=== PATIENT | female | born 1955 | race American Indian/Alaskan Native ===

== ENCOUNTER 2016-11-15 07:52 | Day surgery (SDC) | payer MEDICARE ==
--- NOTE | 2016-11-11 07:58 | Admit Criteria Form ---
Admission Criteria Documentation: AMBULATORY SURGERY EXCEPTION CRITERIA Ambulatory Surgery Exception Criteria ( Place 'X' for any and all applicable criteria): Surgery or procedure performed on ambulatory basis may require inpatient stay for[A] ANY ONE of the following(1)(2)(3)(4)(5)(6)(7)(8)(9): [X] I. A preoperative situation, condition, or finding that warrants inpatient stay as indicated by ANY ONE of the following: [] a) Inpatient care needed because of severity of a disease or condition rather than the surgery (eg, severe cardiac or respiratory disease, severe infection) (15) (16 ) (17) (18) [] b) Emergent procedure (eg, angioplasty for acute ischemia)(19) [] c) Complex surgical approach or situation as indicated by ANY ONE of the following(3): [] i) Open approach needed instead of usual endoscopic, transcatheter, or other less invasive procedure [] ii) Difficult approach because of previous operation [] iii) Airway monitoring required after open neck procedures(20)(21) [] iv) Large mass requiring unusually extensive dissection [] v) Additional complicating feature requiring inpatient care (eg, drain management)(22(23): [X] d) Major surgery in a pt with high anesthetic risk as indicated by ANY ONE of the following (2)(3)(5)(7)(8): [X] i) ASA risk class III or higher (severe systemic disease impairing function) [D] [] ii) Advanced age (eg, older than 85 years)(14)(24) [] iii) Symptomatic heart failure(25) [] iv) Symptomatic asthma or COPD(8)(21) [] v) Morbid obesity with hemodynamic or respiratory problems(20)( 21)(26)(27) [] vi) Obstructive sleep apnea(20)(21) [] vii) Former premature infants who are younger than 60 weeks [] viii) High risk for severe postoperative abnormalities (eg, severe postoperative hypocalcemia after parathyroidectomy for severe hyperparathyroidism)(27)( 28) [] ix) Unstable angina(25) [] e) Drug-related risk requiring inpatient stay as indicated by ANY ONE of the following(5)(10)(14)(32)(33) [] i) Procedure requires discontinuing drugs or other therapy (eg , antiarrhythmic medication, antiseizure medication), which necessitates inpatient observation or treatment.(18)(31) [] ii) Major surgery and high risk drug use as indicated by ANY ONE of the following: [] 1) Active abuse of cocaine or similar drug [] 2) Monoamine oxidase inhibitor use [] 3) Other drug identified as posing risk [] f) Inadequate outpatient care situation as indicated by ANY ONE of the following(5)(10)(14)(32)(33) [] i) Patient lives remote from medical facility and procedure has urgent complication potential, and temporary nearby residence cannot be arranged [] ii) Patient will have postprocedure incapacitation and inadequate assistance at home, or alternative level of care cannot be arranged. [] iii) Patient will have long general anesthesia or procedure side effect resolution time, and competent person to stay with patient on first postoperative night at home or alternative level of care cannot be arranged. []iv) Other inadequate outpatient situation that cannot be handled by other means [] II. A perioperative event, condition, or finding that warrants inpatient stay as indicated by ANY ONE of the following (1)(2)(3): [] a) Inadequate physiologic recovery: cardiovascular, respiratory, or hemodynamic status not normal or near preoperative baseline(18) [] b) Hemodynamic instability [] c) Patient not alert with near normal or baseline mental status [] d) Temperature not normal or as expected and not appropriate for outpatient treatment of condition [] e) Ambulatory or appropriate activity level status not yet achieved post procedure [E](34)(35)(36) [] f) Operative site not appropriate (eg, unexpected or excessive drainage or bleeding) [] g) Postoperative effects not resolved or adequately managed (eg, significant pain or vomiting not appropriate for outpatient or next level of care)(10)(12) [] h) Complicating features requiring inpatient care as indicated by ANY ONE of the following(37): [] i) Severe complications of procedure (eg, bowel injury, airway compromise, vascular injury,severe hemorrhage) [] ii) Extensive (eg, dissection far beyond usual scope of procedure ) or prolonged (eg, 120 minutes beyond usual) surgery needed requiring inpatient postoperative care [] iii) Conversion to an open or complex procedure that requires inpatient care (eg, open vs laparoscopic cholecystectomy, abdominal vs vaginal hysterectomy)(38) [] iv) Comorbid condition or test result identified during or post procedure that requires inpatient care (7) [] v) Malignant hyperthermia(30) [] vi) Other complicating feature requiring inpatient care(22)(23) Inpatient stay may be needed until ALL of the following are present (1)(2)(3)(4) (5)(6)(10)(14)(33)(40): []a) Physiologic recovery: cardiovascular, respiratory, and hemodynamic status normal or near preoperative baseline []b) Hemodynamic stability []c) Patient alert, with near normal or baseline mental status []d) Temperature appropriate: patient afebrile or temperature appropriate for outpt treatment of condition []e) Activity level appropriate: ambulatory or appropriate activity level post procedure []f) Operative site appropriate as indicated by ALL of the following: []i) Site dry or with expected drainage []ii) Any blood noted is as expected for procedure. []g) Postoperative effects resolved or managed as indicated by ALL of the following: []i) Pain management appropriate for outpatient (or next level of) care(10) []ii) Minimal nausea and vomiting: if present, successfully treated with oral medication(12) []iii) Headache, dizziness, or drowsiness (if present) are mild. []h) Voiding status acceptable as indicated by ANY ONE of the following: []i) Voiding spontaneously []ii) No voiding but instructions given for follow-up in 6 to 8 hours []iii) Urinary catheter in place, and instructions given for follow-up []i) Complicating features requiring inpatient care manageable at a lower level of care(37) []j) Comorbid conditions manageable at a lower level of care(37) The original [employer] content created by [employer] has been revised. The portions of the content which have been revised are identified through the use of italic text or in bold, and [employer] has neither reviewed nor approved the modified material. All other unmodified content is copyright [employer]. Please see references footnoted in the original [employer] edition 2016
[~2016-11-15 07:52] MED LIST: ANCEF/STERILE WATER 2 GM/20 ML 2 GM/20 ML SYRINGE IV NR; NACL 0.9% 1000 ML 1,000 ML IV SCH
[2016-11-15] MEDS ORDERED: NACL BACTERIOSTATIC INFILTRATI ONE (08:25)
[2016-11-15] MEDS ORDERED: DIPRIVAN 10 MG/ML IV ONE (08:30)
[2016-11-15] MEDS ORDERED: SUBLIMAZE ONE (08:30)
[2016-11-15] MEDS ORDERED: ZOFRAN ONE (08:30)
[2016-11-15] MEDS ORDERED: XYLOCAINE MPF 2% ONE (08:30)
--- NOTE | 2016-11-15 08:31 | Anesthesia Consultation ---
Anesthesia Consult and Med Hx Date of service: 11/15/16 - Airway Anesthetic Teeth Evaluation: Poor (multiple missing and chipped teeth) ROM Head & Neck: Adequate Mental/Hyoid Distance: Adequate Mallampati Class: Class II Intubation Access Assessment: Probably Good - Pre-Operative Health Status ASA Pre-Surgery Classification: ASA3 Proposed Anesthetic Plan: General - Pulmonary Hx Smoking: Yes (QUIT 30YRS AGO) Hx Asthma: Yes ( A CHILD) - Cardiovascular System Hx Hypertension: Yes (30YRS) Hx Peripheral Vascular Disease: Yes (vasculitis) - Central Nervous System Hx Psychiatric Problems: Yes (depression) - Endocrine Hx Renal Disease: Yes Hx End Stage Renal Disease: Yes (04/2016) - Hematic Hx Anemia: Yes ( IRON INFUSION) - Other Systems Hx Cancer: Yes (breast rt)
--- NOTE | 2016-11-15 08:32 | Anesthesia Day of Surgery ---
Anesthesia Day of Surgery - Day of Surgery Patient Examined: Yes Patient H&P Reviewed: Yes Patient is NPO: Yes Beta Blockers: Yes
[2016-11-15] MEDS ORDERED: BENADRYL IV NR (08:59)
[2016-11-15] MEDS ORDERED: PEPCID IV NR (09:00)
[2016-11-15] MEDS ORDERED: BENADRYL PO NR (09:00)
[2016-11-15] MEDS ORDERED: VERSED IV NR (09:00)
[2016-11-15] MEDS ORDERED: NACL ONE (09:50)
[2016-11-15] MEDS ORDERED: RIFADIN ONE (09:50)
[2016-11-15] MEDS ORDERED: MARCAINE 0.5% INFILTRATI ONE ×2 (09:50→11:07)
[2016-11-15] MEDS ORDERED: HEPARIN 10,000 UNITS/10 ML ONE (09:50)
[2016-11-15] MEDS ORDERED: PAPAVERINE ONE (09:50)
[2016-11-15] MEDS ORDERED: XYLOCAINE 1%/ EPI 1:100,000 INFILTRATI ONE (09:50)
[2016-11-15] MEDS ORDERED: PROTAMINE SULFATE ONE (09:50)
[2016-11-15] MEDS ORDERED: NACL 0.9% 500 ML 0 ML ONE (09:51)
[2016-11-15 10:08] LABS: INR 1.74 (0.87-1.13)
[2016-11-15 10:09] LABS: Partial Thromboplastin Time 42.2 Sec. (24.2-36.6)
[2016-11-15] MEDS ORDERED: NACL 0.9% 500 ML 500 ML ONE (10:33)
[2016-11-15] MEDS ORDERED: NEO SYNEPHRINE ONE (10:40)
[2016-11-15] MEDS ORDERED: NACL 0.9% 100 ML ONE (10:40)
[2016-11-15] MEDS ORDERED: ePHEDrine SULFATE ONE (10:45)
[2016-11-15] MEDS ORDERED: ROBINUL ONE (10:49)
[2016-11-15] MEDS ORDERED: DILAUDID IV PRN (10:50)
[2016-11-15] MEDS ORDERED: NACL 0.9% IR ONE (11:07)
[2016-11-15] MEDS ORDERED: NACL 0.9% 500 ML IV ONE (11:07)
--- NOTE | 2016-11-15 11:52 | Short Stay Summary ---
Short Stay Documentation Date of service: 11/15/16 Narrative H&P: See H&P - History H&P: obtained from office - Allergies and Medications Current Medications: Allergies nut - unspecified Allergy (Severe, Verified 01/01/16 07:13) Anaphylaxis shellfish derived Allergy (Severe, Verified 01/01/16 07:13) Anaphylaxis latex Allergy (Mild, Verified 12/31/15 04:09) Itching BYRON Inhibitors Allergy (Verified 12/30/15 18:20) Angioedema azithromycin [From Zithromax] Allergy (Verified 12/30/15 18:20) Anaphylaxis Beef Containing Products Adverse Reaction (Mild, Verified 01/01/16 07:13) Unknown UPSET STOMACH gluten Adverse Reaction (Mild, Verified 01/01/16 07:13) Unknown UPSET STOMACH lactose Adverse Reaction (Mild, Verified 01/01/16 07:13) Unknown UPSET STOOMACH orange juice Adverse Reaction (Mild, Verified 01/01/16 07:13) Unknown UPSET STOMACH Pork/Porcine Containing Products Adverse Reaction (Mild, Verified 01/01/16 07:13 ) Unknown UPSET STOMACH soy Adverse Reaction (Mild, Verified 01/01/16 07:13) Unknown UPSET STOMACH Calcium Channel Blocking Agent Dilt Adverse Reaction (Verified 12/30/15 18:20) Headache hydralazine HCl [From Apresoline] Adverse Reaction (Verified 05/10/16 18:56) Unknown iv dye Allergy (Uncoded 05/26/16 14:49) Swelling Home Medications Medication Instructions Recorded Confirmed Last Taken Type Pantoprazole [Protonix TAB] 40 mg PO QDAY 05/27/16 11/15/16 11/14/16 18:00 History ALPRAZolam [Xanax TAB] 0.5 mg PO TID PRN 11/14/16 11/15/16 11/14/16 22:00 History Warfarin [Coumadin] 4 mg PO QDAY 11/14/16 11/15/16 11/14/16 19:00 History Metoprolol [Lopressor] 25 mg PO QDAY 11/15/16 11/15/16 11/15/16 05:30 History Vit B Cplx #11/FA/C/Biot/Zn Ox 1 each PO QDAY 11/15/16 11/15/16 11/11/16 History [Dialyvite with Zinc Tablet] Active Medications Diphenhydramine HCl (Benadryl) 25 mg IV ONCE NR Stop: 11/15/16 12:00 Last Admin: 11/15/16 09:41 Dose: 25 mg Famotidine (Pepcid) 20 mg IV PREOP NR Stop: 11/15/16 23:59 Last Admin: 11/15/16 09:42 Dose: 20 mg Hydromorphone HCl (Dilaudid) 0.5 mg IV Q10MIN PRN PRN Reason: Pain , Severe (7-10) Stop: 11/15/16 18:00 Cefazolin Sodium (Ancef/Sterile Water 2 Gm/20 Ml) 2 gm in 20 mls @ 80 mls/hr IV PREOP NR PRN Reason: Protocol Stop: 11/15/16 23:01 Sodium Chloride (Nacl 0.9% 1000 Ml) 1,000 mls @ 42 mls/hr IV DIRECT SHAWN Last Admin: 11/15/16 09:30 Dose: 42 mls/hr Midazolam HCl (Versed) 2 mg IV PREOP NR Stop: 11/15/16 23:59 Last Admin: 11/15/16 09:48 Dose: 2 mg - Brief post op/procedure progress note Date of procedure: 11/15/16 Pre-op diagnosis: End-Stage Renal Disease Post-op diagnosis: same Procedure: Creation of left brachiocephalic arteriovenous fistula Anesthesia: ALEX Surgeon: ARUN SEWELL Estimated blood loss: minimal Pathology: none Condition: stable - Disposition Condition at discharge: Good Disposition: DISCHARGED TO HOME OR SELFCARE Short Stay Discharge Plan Activity: other (no heavy lifting with left arm) Wound: open to air, keep clean and dry, other (okay to wash the wound with soap and water but do not soak in water) Follow up with: ARUN SEWELL MD [Staff Physician] - 14 Days Prescriptions: HYDROcodone/APAP 7.5-325 [[place] 7.5/325] 1 each PO Q6HR PRN #50 tablet PRN Reason: Pain
--- NOTE | 2016-11-15 11:55 | Operative Report ---
Operative Report Operative Report: Date of procedure: 11/15/2016 Pre-operative diagnosis: End-Stage Renal Disease Post-operative diagnosis: End-Stage Renal Disease Procedure(s): Creation of Left Brachial Artery to Cephalic Vein Arteriovenous Fistula Surgeon: Eamon Rogel MD Trash Collector Supervisor: None Anesthesia: Gen. endotracheal anesthesia EBL: Minimal Counts: Correct Complications: None Condition: Stable Findings: Successful creation of left brachiocephalic fistula with excellent thrill and palpable radial pulse at the completion of the case. Specimen: None Indications: The patient is a 61-year-old female with history of end-stage renal disease currently on hemodialysis through a right internal jugular permacath. She is in need of long-term access. Vein mapping demonstrates she was adamant candidate for creation of a fistula. She was given the risks, benefits, and alternative procedures and consented to procedure. Description of Procedure: The patient was brought to the operating room and laid in supine position after general endotracheal anesthesia was administered the patient was prepped and draped in normal sterile fashion. After anesthetizing the skin a transverse incision was created just below the antecubital crease. Dissection was carried down to the the cephalic vein using sharp dissection. The vein was dissected out both proximally and distally and suture ligated and divided distally. I then ran a 3 Denisse proximally in the vein, to ensure patency of the vein. Then flushed the vein with saline and flow was controlled with a bulldog clamp. I then dissected out the brachial artery through this incision circumferentially both proximal and distal and controlled the artery with vessel loops. I then placed the vessel loops on tension controlling the flow through the artery and created an arteriotomy using an 11 blade and Zapien scissors. I created an end to side anastomosis between the cephalic vein and brachial artery using a 6-0 Prolene in running fashion. Prior to completing the anastomosis I flushed the artery both proximally and distally and then advanced a 3 Denisse proximally to break the spasm in the artery. I then completed the anastomosis and removed all vessel loops allowing flow into the fistula which had an excellent thrill. I achieved hemostasis with a combination of direct pressure and electrocautery. Once hemostasis was achieved I anesthetized the wound with Marcaine. I then closed the wound in 2 layers and 3-0 Vicryl in a running fashion to close the deep dermal layer and 4- 0 Monocryl in a running fashion in the subcuticular layer. I dressed the wound with Surgicel. The patient tolerated the procedure well, all sponge needle and instrument counts were correct. The patient was taken to recovery in stable condition.
[2016-11-15 14:10] VITALS: BP 106/67
== END 2016-11-15 13:22 | disposition home or self-care (01) ==
LOC: OR 07:52
PROVIDERS: ATTEND Surgery Vascular Surgery
DX: I12.0 Hypertensive chronic kidney disease with stage 5 chronic kidney disease or end stage renal disease (principal); N18.6 End stage renal disease; J45.909 Unspecified asthma, uncomplicated; F32.9 Major depressive disorder, single episode, unspecified; D64.9 Anemia, unspecified; F17.210 Nicotine dependence, cigarettes, uncomplicated; Z99.2 Dependence on renal dialysis; Z79.899 Other long term (current) drug therapy; Z79.01 Long term (current) use of anticoagulants; Z87.891 Personal history of nicotine dependence; Z85.3 Personal history of malignant neoplasm of breast
CPT/HCPCS: 36415; 36818; 84132; 85610; 85730; J0690; J1170; J1200; J2250; J2370; J2405; J2704; J2720; J3010; J7030; J7040; C1757; J1644; J2440; J3490

== ENCOUNTER 2017-03-07 06:21 | Day surgery (SDC) | payer MEDICARE ==
[2017-03-07] MEDS ORDERED: XYLOCAINE MPF 2% ONE (07:07)
[2017-03-07] MEDS ORDERED: DILAUDID ONE (07:07)
[2017-03-07] MEDS ORDERED: DIPRIVAN 10 MG/ML IV ONE (07:07)
[2017-03-07] MEDS ORDERED: ZOFRAN ONE (07:07)
--- NOTE | 2017-03-07 07:19 | Anesthesia Consultation ---
Anesthesia Consult and Med Hx Date of service: 03/07/17 - Airway Anesthetic Teeth Evaluation: Poor ROM Head & Neck: Adequate Mental/Hyoid Distance: Adequate Mallampati Class: Class I Intubation Access Assessment: Good - Pulmonary Exam CTA: Yes - Cardiac Exam Cardiac Exam: RRR - Pre-Operative Health Status ASA Pre-Surgery Classification: ASA4 Proposed Anesthetic Plan: General - Pulmonary Hx Smoking: Yes (QUIT 40YRS AGO) Hx Asthma: Yes ( A CHILD) - Cardiovascular System Hx Hypertension: Yes (30YRS) Hx Peripheral Vascular Disease: Yes (vasculitis) - Central Nervous System Hx Psychiatric Problems: Yes (depression) - Endocrine Hx Renal Disease: Yes Hx End Stage Renal Disease: Yes (04/2016) - Hematic Hx Anemia: Yes ( IRON INFUSION) - Other Systems Hx Cancer: Yes (breast rt) - Additional Comments Anesthesia Medical History Comments: Denies HTN (claims hypotension with no meds ). Cracked upper left teeth. Poor overall dentition.
--- NOTE | 2017-03-07 07:20 | Anesthesia Day of Surgery ---
Anesthesia Day of Surgery - Day of Surgery Patient Examined: Yes Patient H&P Reviewed: Yes Patient is NPO: Yes
[2017-03-07 07:24] LABS: Hematocrit 33.8 % (30.3-42.9); Hemoglobin 11.4 gm/dl (10.1-14.3); Mean Corpuscular HGB Conc 34 % (30-34); Mean Corpuscular Hemoglobin 31 pg (28-32); Mean Corpuscular Volume 92 fl (79-97); Platelet Count 136 K/mm3 (140-440); Red Blood Count 3.68 M/mm3 (3.65-5.03); White Blood Count 8.4 K/mm3 (4.5-11.0)
[2017-03-07] MEDS ORDERED: VERSED IV ONE (07:27)
[2017-03-07] MEDS ORDERED: VERSED IV PRN (07:30)
[2017-03-07] MEDS ORDERED: MARCAINE 0.5% 30 ML INFILTRATI ONE (07:33)
[2017-03-07] MEDS ORDERED: HEPARIN 10,000 UNITS/10 ML ONE (07:33)
[2017-03-07] MEDS ORDERED: NACL 0.9% 500 ML 500 ML ONE (07:34)
[2017-03-07 07:35] LABS: BUN/Creatinine Ratio 6.54; Calcium 9.6 mg/dL (8.4-10.2); Potassium 4.2 mmol/L (3.6-5.0)
[2017-03-07] MEDS ORDERED: RIFADIN ONE (07:41)
[2017-03-07] MEDS ORDERED: PEPCID IV NR (08:00)
[2017-03-07] MEDS ORDERED: BENADRYL IV ONE ×2 (08:00→12:00)
[2017-03-07] MEDS ORDERED: DECADRON ONE (08:42)
[2017-03-07] MEDS ORDERED: MARCAINE 0.5% INFILTRATI ONE ×2 (08:57)
[2017-03-07] MEDS ORDERED: NACL 0.9% IR ONE (08:57)
[2017-03-07] MEDS ORDERED: HEPARIN 10,000 UNITS/10 ML 2,000 UNIT in NACL 0.9% 500 ML 500 ML IR ONE (08:58)
--- NOTE | 2017-03-07 09:33 | Short Stay Summary ---
Short Stay Documentation Date of service: 03/07/17 Narrative H&P: See H&P - History H&P: obtained from office - Allergies and Medications Current Medications: Allergies nut - unspecified Allergy (Severe, Verified 01/01/16 07:13) Anaphylaxis shellfish derived Allergy (Severe, Verified 01/01/16 07:13) Anaphylaxis latex Allergy (Mild, Verified 12/31/15 04:09) Itching BYRON Inhibitors Allergy (Verified 12/30/15 18:20) Angioedema azithromycin [From Zithromax] Allergy (Verified 12/30/15 18:20) Anaphylaxis Beef Containing Products Adverse Reaction (Mild, Verified 01/01/16 07:13) Unknown UPSET STOMACH gluten Adverse Reaction (Mild, Verified 01/01/16 07:13) Unknown UPSET STOMACH lactose Adverse Reaction (Mild, Verified 01/01/16 07:13) Unknown UPSET STOOMACH orange juice Adverse Reaction (Mild, Verified 01/01/16 07:13) Unknown UPSET STOMACH Pork/Porcine Containing Products Adverse Reaction (Mild, Verified 01/01/16 07:13 ) Unknown UPSET STOMACH soy Adverse Reaction (Mild, Verified 01/01/16 07:13) Unknown UPSET STOMACH Calcium Channel Blocking Agent Dilt Adverse Reaction (Verified 12/30/15 18:20) Headache hydralazine HCl [From Apresoline] Adverse Reaction (Verified 05/10/16 18:56) Unknown iv dye Allergy (Uncoded 05/26/16 14:49) Swelling ADHESIVES Adverse Reaction (Uncoded 03/07/17 08:24) Rash GLUE Adverse Reaction (Uncoded 03/07/17 08:23) Rash Home Medications Medication Instructions Recorded Confirmed Last Taken Type Pantoprazole [Protonix TAB] 40 mg PO PRN 05/27/16 03/01/17 11/14/16 18:00 History ALPRAZolam [Xanax TAB] 0.5 mg PO TID PRN 11/14/16 03/01/17 11/14/16 22:00 History Warfarin [Coumadin] 4 mg PO QDAY 11/14/16 03/01/17 11/14/16 19:00 History HYDROcodone/APAP 7.5-325 [[place] 1 each PO Q6HR PRN #50 tablet 11/15/16 03/01/17 Unknown Rx 7.5/325] Metoprolol [Lopressor TAB] 25 mg PO QDAY 11/15/16 03/01/17 11/15/16 05:30 History Vit B Cplx #11/FA/C/Biot/Zn Ox 1 each PO QDAY 11/15/16 03/01/17 11/11/16 History [Dialyvite with Zinc Tablet] Active Medications Famotidine (Pepcid) 20 mg IV PREOP NR Stop: 03/07/17 21:00 Last Admin: 03/07/17 07:35 Dose: 20 mg Cefazolin Sodium (Ancef/Sterile Water 2 Gm/20 Ml) 2 gm in 20 mls @ 80 mls/hr IV PREOP NR PRN Reason: Protocol Stop: 03/07/17 23:01 Sodium Chloride (Nacl 0.9% 1000 Ml) 1,000 mls @ 42 mls/hr IV DIRECT SHAWN Last Admin: 03/07/17 07:10 Dose: 42 mls/hr Midazolam HCl (Versed) 2 mg IV PREOP PRN PRN Reason: Agitation Stop: 03/07/17 21:00 Last Admin: 03/07/17 07:40 Dose: 2 mg - Brief post op/procedure progress note Date of procedure: 03/07/17 Pre-op diagnosis: Complications of Dialysis Access Post-op diagnosis: same Procedure: Revision with Elevation of Left Brachiocephalic Arteriovenous Fistula Anesthesia: GETA Surgeon: ARUN SEWELL Estimated blood loss: 50-100ml Pathology: none Condition: stable - Disposition Condition at discharge: Good Disposition: DC-01 TO HOME OR SELFCARE Short Stay Discharge Plan Activity: other (no heavy lifting with left arm) Wound: open to air, keep clean and dry, other (okay to wash the wound with soap and water but do not soak in water) Follow up with: ARUN SEWELL MD [Staff Physician] - 14 Days Prescriptions: HYDROcodone/APAP 7.5-325 [[place] 7.5/325] 1 each PO Q6HR PRN #60 tablet PRN Reason: Pain
--- NOTE | 2017-03-07 09:41 | Operative Report ---
Operative Report Operative Report: Date of Procedure: 03/07/2017 Pre-operative Diagnosis: Complications of Dialysis Access Post-operative Diagnosis: Same Procedure(s): 1. Revision with Elevation of Left Brachiocephalic Arteriovenous Fistula Surgeon: Eamon Rogel M.D. Case Coordinator: Alla Anesthesia: Gen. endotracheal anesthesia EBL: Minimal Counts: Correct Complications: None Condition: Stable Findings: Successful revision with elevation of left brachiocephalic fistula with excellent thrill at the completion of the case. Specimen: None Indication: The patient is a 61-year-old female with history of end-stage renal disease who had creation of a left brachiocephalic AV fistula that is too deep to access by ultrasound. It was felt that she would benefit from revision with elevation. He was given the risks, benefits, and alternative procedures and consented to procedure. Description of Procedure: The patient was brought to the operating room and laid in supine position. After general endotracheal anesthesia was achieved the left arm was prepped and draped in normal sterile fashion. A longitudinal incision was made just medial to the fistula. Sharp dissection was used to carry the dissection down to the fistula and the fistula was dissected circumferentially and all branches were suture-ligated and divided. A subcutaneous pocket was then created on the lateral aspect of the incision and the fistula was then secured in place using interrupted 3-0 Vicryl. The wound was then anesthetized and closed in 2 layers using 3-0 Vicryl in running fashion in the deep dermal layer and a 4-0 Monocryl in running fashion in the subcuticular layer and then dressed with Dermabond. The patient tolerated the procedure well. All sponge, needle, and instrument counts were correct. The patient was taken to the recovery area in stable condition.
[2017-03-07 10:44] LABS: Anisocytosis 1+; Basophils % (Manual) 0 % (0.0-1.8); Blastocytes % (Manual) 0 %; Diff Status Complete; Macrocytosis 1+; Platelet Estimate Consistent w Auto; Polychromasia Few; Target Cells Few
[2017-03-07] MEDS ORDERED: NORCO 7.5/325 PO SCH (11:00)
--- NOTE | 2017-03-07 15:04 | Post Anesthesia Evaluation ---
- Post Anesthesia Evaluation Patient Participated: Yes Airway Patent: Yes Stable Respiratory Function: Yes Nausea/Vomiting: No Temp > 96.8F: Yes Pain Manageable: Yes Adequeate Hydration: Yes Anesthesia Complications: No
[2017-03-07 15:09] VITALS: BP 138/72
== END 2017-03-07 12:55 | disposition home or self-care (01) ==
LOC: OR 06:21
PROVIDERS: ATTEND Surgery Vascular Surgery
DX: T82.590A Other mechanical complication of surgically created arteriovenous fistula, initial encounter (principal); I12.0 Hypertensive chronic kidney disease with stage 5 chronic kidney disease or end stage renal disease; N18.6 End stage renal disease; J45.909 Unspecified asthma, uncomplicated; F32.9 Major depressive disorder, single episode, unspecified; D64.9 Anemia, unspecified; Z87.891 Personal history of nicotine dependence; Z79.01 Long term (current) use of anticoagulants; Z86.79 Personal history of other diseases of the circulatory system; Z85.3 Personal history of malignant neoplasm of breast; Z98.890 Other specified postprocedural states; Z99.2 Dependence on renal dialysis; Z98.51 Tubal ligation status; Z88.8 Allergy status to other drugs, medicaments and biological substances; Z91.040 Latex allergy status; Z88.1 Allergy status to other antibiotic agents; Z91.041 Radiographic dye allergy status; Z91.013 Allergy to seafood; Z91.018 Allergy to other foods; Z91.09 Other allergy status, other than to drugs and biological substances; Z79.899 Other long term (current) drug therapy; Y83.2 Surgical operation with anastomosis, bypass or graft as the cause of abnormal reaction of the patient, or of later complication, without mention of misadventure at the time of the procedure
CPT/HCPCS: 36415; 36832; 80048; 85007; 85025; J0690; J1100; J1170; J1200; J1644; J2250; J2405; J2704; J3490; J7030; J7040

== ENCOUNTER 2018-08-30 12:28 | Day surgery (SDC) | payer MEDICARE ==
[2018-08-30] MEDS ORDERED: SOLU-Medrol IV ONE (13:40)
[2018-08-30] MEDS ORDERED: BENADRYL IV ONE (13:40)
[2018-08-30] MEDS ORDERED: PEPCID IV ONE (13:41)
[2018-08-30] MEDS ORDERED: NACL 0.9% 500 ML 500 ML IV SCH (14:00)
[2018-08-30] MEDS ORDERED: HEPARIN/NS 5000 UNIT/500ML(CATH LAB) 1,000 ML IR ONE (15:06)
[2018-08-30] MEDS ORDERED: HEPARIN 10,000 UNITS/10 ML ONE (15:06)
[2018-08-30] MEDS: SUBLIMAZE ONE ×7 (15:24→16:37)
[2018-08-30] MEDS: VERSED ONE ×5 (15:24→16:20)
[2018-08-30] MEDS: XYLOCAINE 2% INFILTRATI ONE ×4 (15:24→16:58)
[2018-08-30] MEDS ORDERED: ANCEF/STERILE WATER 2 GM/20 ML 0 GM/0 ML SYRINGE IV ONE (15:53)
[2018-08-30] MEDS ORDERED: VERSED ONE (16:22)
[2018-08-30] MEDS ORDERED: ULTRAM PO ONE (17:38)
[2018-08-30] MEDS ORDERED: ULTRAM ONE (17:40)
--- NOTE | 2018-08-30 17:45 | Short Stay Summary ---
Short Stay Documentation Date of service: 08/30/18 Narrative H&P: AVF malfunction - Allergies and Medications Current Medications: Allergies nut - unspecified Allergy (Severe, Verified 01/01/16 07:13) Anaphylaxis shellfish derived Allergy (Severe, Verified 01/01/16 07:13) Anaphylaxis latex Allergy (Mild, Verified 12/31/15 04:09) Itching BYRON Inhibitors Allergy (Verified 12/30/15 18:20) Angioedema azithromycin [From Zithromax] Allergy (Verified 12/30/15 18:20) Anaphylaxis Beef Containing Products Adverse Reaction (Mild, Verified 01/01/16 07:13) Unknown UPSET STOMACH gluten Adverse Reaction (Mild, Verified 01/01/16 07:13) Unknown UPSET STOMACH lactose Adverse Reaction (Mild, Verified 01/01/16 07:13) Unknown UPSET STOOMACH orange juice Adverse Reaction (Mild, Verified 01/01/16 07:13) Unknown UPSET STOMACH Pork/Porcine Containing Products Adverse Reaction (Mild, Verified 01/01/16 07:13) Unknown UPSET STOMACH soy Adverse Reaction (Mild, Verified 01/01/16 07:13) Unknown UPSET STOMACH Calcium Channel Blocking Agent Dilt Adverse Reaction (Verified 12/30/15 18:20) Headache hydralazine HCl [From Apresoline] Adverse Reaction (Verified 05/10/16 18:56) Unknown iv dye Allergy (Uncoded 05/26/16 14:49) Swelling ADHESIVES Adverse Reaction (Uncoded 03/07/17 08:24) Rash GLUE Adverse Reaction (Uncoded 03/07/17 08:23) Rash Home Medications Medication Instructions Recorded Confirmed Last Taken Type ALPRAZolam [Xanax TAB] 0.5 mg PO TID PRN 11/14/16 08/30/18 08/29/18 History 0.5mg B Complex 11/Folic/C/Biot/Zinc 1 each PO QDAY 11/15/16 08/30/18 08/29/18 History [Dialyvite with Zinc Tablet] 1 tab Cholecalciferol Vit D3 [Vitamin D3] 50,000 units PO QWEEK 08/30/18 08/30/18 08/26/18 History 31110 units Cinacalcet [Sensipar] 30 mg PO 4XW 08/30/18 08/30/18 08/28/18 History 30mg Ranitidine HCl [Zantac] 300 mg PO DAILY PRN 08/30/18 08/30/18 08/29/18 History 300mg Sucralfate [Carafate] 1 gm PO BID 08/30/18 08/30/18 08/28/18 History 1 gm Sucroferric Oxyhydroxide [Velphoro] 500 mg PO AC 08/30/18 08/30/18 08/29/18 History Active Medications Cefazolin Sodium (Ancef/Sterile Water 2 Gm/20 Ml) 2 gm in 20 mls @ 80 mls/hr IV PREOP NR; Protocol Stop: 08/30/18 23:59 Sodium Chloride (Nacl 0.9% 500 Ml) 500 mls @ 50 mls/hr IV DIRECT SHAWN - Physical exam General appearance: no acute distress Lungs: Normal air movement Extremities: normal temperature, normal color, abnormal (pulsatile AVF) - Brief post op/procedure progress note Date of procedure: 08/30/18 Pre-op diagnosis: AVF malfunction Post-op diagnosis: same Procedure: peripheral dialysis access stent placement Anesthesia: local (w/ conscious sedation) Surgeon: MILAN BRASHER Estimated blood loss: 50-100ml Condition: stable - Hospital course Hospital course: Ready for discharge - Disposition Condition at discharge: Stable Disposition: DC-01 TO HOME OR SELFCARE - Discharge Diagnoses (1) Dialysis AV fistula malfunction Status: Acute Short Stay Discharge Plan Activity: advance as tolerated Weight Bearing Status: Weight Bear as Tolerated Diet: renal Wound: keep clean and dry Follow up with: ENEIDA PARSONS MD [Primary Care Provider] - 7 Days
--- NOTE | 2018-08-30 17:52 | Operative Report ---
Operative Report Operative Report: EXAM: 1. Ultrasound guided access of the left arm AV fistula towards the anastamosis 2. Selection of the brachial artery in a retrograde fashion with digital subtraction angiography (first order selection) 3. Angioplasty of the peripheral cephalic vein with an 8 mm x 80 mm angioplasty balloon 4. Ultrasound guided access of the left arm AV fistula towards the venous outflow 5. Angioplasty of the cephalic arch with an 8 mm x 80 mm angioplasty balloon 6. Balloon tamponade of the cephalic arch with a 8 mm x 80 mm angioplasty balloon 7. Ultrasound-guided access of the left arm AV fistula towards the venous outflow 8. Balloon tamponade of the distal cephalic vein with a 10 mm x 40 mm angioplasty balloon 9. Stent graft placement across the cephalic arch with an 8 mm x 10 cm Viabahn stent graft post dilated with an 8 mm angioplasty balloon DATE: 08/30/18 PARTS SALES ADVISOR: MILAN BRASHER MD CIRCULATING PROCESS INSPECTOR: LUIS CORTEZ MD INDICATION: AV fistula malfunction with decreased clearance MEDICATIONS: Please see nursing report for full details. DEVICES: 8 mm x 80 mm angioplasty balloon 10 mm x 40 mm angioplasty balloon 8 mm x 10 cm Viabahn stent graft PROCEDURE: The risks, benefits, and alternatives of the procedure were discussed and written informed consent was obtained. The patient was transported in stable condition to the angiography suite. The patient's left arm AV fistula was assessed by ultrasound and was patent. The patient was prepped and draped in a sterile fashion. Under ultrasound guidance, the left arm AV fistula was accessed with a 21-gauge micropuncture needle. The area was anesthetized prior to access. 0.018 inch wire was advanced through the micropuncture needle into the fistula and then the needle was exchanged for a 5 [place] transitional dilator. The inner dilator and wire were removed and a 0.035 inch wire was advanced through the anastamosis. The transitional dilator was exchanged for a 6 [place] short sheath. The brachial artery was then selected in a retrograde fashion. Fistulogram was performed of the venous outflow and central veins. Subtraction angiography angiography demonstrated 70% narrowing of the peripheral portion of the cephalic vein with aneurysmal changes of the midportion of the cephalic vein. The anastomosis is patent. The brachial artery proximal and distal to the anastomosis is patent. The mid cephalic vein is patent. The cephalic arch has a 90% narrowing. The central veins are patent. 8 mm x 80 mm angioplasty balloon is used to perform angioplasty of the peripheral cephalic vein. There is 10% residual narrowing. There is a improved thrill. At this point, access was obtained with direct ultrasound guidance towards the venous outflow and the access was upsized to a 6 [place] sheath. 8 mm x 80 mm angioplasty below she is performing angioplasty of the cephalic arch. After inflation, the patient began to have pain, and digital subtraction angiography demonstrated a large area of extravasation. Wire was across the extravasation and the balloon was reinflated. As the balloon was reinflated, a new access was obtained towards the venous outflow the access was upsized to a 7 [place] sheath. 10 mm x 40 mm angioplasty balloon was then used to tamponade the central cephalic vein. As this was performed, the wire in the 8 mm balloon performing balloon tamponade was exchanged for a V18. Balloon was then exchanged for a 8 mm x 10 cm Viabahn stent-graft which was deployed across the cephalic arch. Stent graft was d eployed and post dilated with 8 mm angioplasty balloon. Digital subtraction angiography demonstrated no extravasation or pseudoaneurysm. At this point, digital subtraction angiography was performed in the brachial artery demonstrating some residual narrowing of the peripheral cephalic vein which was retreated with an 8 mm angioplasty balloon. At this point, all wires removed and each site was closed with 3-0 Vicryl. Hemostasis was achieved with manual compression. The patient was transported from the angiography suite to the recovery area in stable condition. IMPRESSION: Successful peripheral dialysis access angioplasty and stent placement as described above.
[2018-08-30 18:32] VITALS: BP 102/58
== END 2018-08-30 19:00 | disposition home or self-care (01) ==
LOC: CATHLABREC 12:28
PROVIDERS: ATTEND Radiology Diagnostic Radiology
DX: T82.898A Other specified complication of vascular prosthetic devices, implants and grafts, initial encounter (principal); I13.2 Hypertensive heart and chronic kidney disease with heart failure and with stage 5 chronic kidney disease, or end stage renal disease; N18.6 End stage renal disease; I50.9 Heart failure, unspecified; G43.909 Migraine, unspecified, not intractable, without status migrainosus; D64.9 Anemia, unspecified; K21.9 Gastro-esophageal reflux disease without esophagitis; F41.9 Anxiety disorder, unspecified; F32.9 Major depressive disorder, single episode, unspecified; Z98.890 Other specified postprocedural states; Z85.3 Personal history of malignant neoplasm of breast; Z99.2 Dependence on renal dialysis; Z91.040 Latex allergy status; Z88.8 Allergy status to other drugs, medicaments and biological substances; Z91.041 Radiographic dye allergy status; Z91.018 Allergy to other foods; Z91.013 Allergy to seafood; Z87.891 Personal history of nicotine dependence; Z79.899 Other long term (current) drug therapy; Z98.891 History of uterine scar from previous surgery; Y83.8 Other surgical procedures as the cause of abnormal reaction of the patient, or of later complication, without mention of misadventure at the time of the procedure; Y92.89 Other specified places as the place of occurrence of the external cause
CPT/HCPCS: 36415; 36903; 84132; 96374; 96375; 99156; 99157; C1725; C1751; C1769; C1874; C1894; J1200; J1644; J2250; J2930; J3010; J7040; J0690; Q9967

== ENCOUNTER 2018-10-04 07:08 | Day surgery (SDC) | payer MEDICARE ==
[2018-10-04] MEDS ORDERED: MARCAINE 0.5% INFILTRATI ONE ×2 (07:31→10:34)
[2018-10-04] MEDS ORDERED: HEPARIN 10,000 UNITS/10 ML ONE (07:32)
[2018-10-04] MEDS ORDERED: NACL 0.9% 500 ML 500 ML ONE (07:32)
[2018-10-04] MEDS ORDERED: XYLOCAINE 1%/ EPI 1:100,000 INFILTRATI ONE (07:32)
[2018-10-04] MEDS ORDERED: NACL BACTERIOSTATIC INFILTRATI ONE (08:08)
[2018-10-04] MEDS ORDERED: SUBLIMAZE IV PRN (08:44)
--- NOTE | 2018-10-04 08:44 | Anesthesia Day of Surgery ---
Anesthesia Day of Surgery - Day of Surgery Patient Examined: Yes Patient H&P Reviewed: Yes Patient is NPO: Yes
--- NOTE | 2018-10-04 08:44 | Anesthesia Consultation ---
Anesthesia Consult and Med Hx Date of service: 10/04/18 - Airway Anesthetic Teeth Evaluation: Poor ROM Head & Neck: Adequate Mental/Hyoid Distance: Adequate Mallampati Class: Class II Intubation Access Assessment: Probably Good - Pulmonary Exam CTA: Yes - Cardiac Exam Cardiac Exam: RRR - Pre-Operative Health Status ASA Pre-Surgery Classification: ASA4 Proposed Anesthetic Plan: General - Pulmonary Hx Smoking: Yes (quit 30yrs ago) Hx Asthma: Yes (no symptoms since age 30) Hx Respiratory Symptoms: No - Cardiovascular System Hx Hypertension: Yes (no current antihypertensives) Hx Heart Attack/AMI: No Hx Percutaneous Transluminal Coronary Angioplasty (PTCA): No Hx Cardia Arrhythmia: No Hx Peripheral Vascular Disease: Yes (vasculitis / Microscopic polyangitis) - Central Nervous System Hx Seizures: No CVA: No Hx Psychiatric Problems: Yes (anxiety, depression) - Gastrointestinal Hx Gastroesophageal Reflux Disease: Yes - Endocrine Hx End Stage Renal Disease: Yes (last HD 10/03/18) Hx Liver Disease: No Hx Insulin Dependent Diabetes: No Hx Non-Insulin Dependent Diabetes: No Hx Thyroid Disease: No - Hematic Hx Anemia: Yes ([facility] witness, does not accept blood products or albumin) - Other Systems Hx Cancer: Yes Hx Obesity: Yes - Additional Comments Anesthesia Medical History Comments: TTE 01/2018 shows normal EF, no significant valvular lesions. Cardiac clearance note on chart. Takes valerie for RIJ DVT which has been held x4 days.
[2018-10-04] MEDS ORDERED: DIPRIVAN 10 MG/ML IV ONE (08:51)
[2018-10-04] MEDS ORDERED: PEPCID IV NR (09:00)
[2018-10-04] MEDS ORDERED: VERSED IV NR (09:00)
[2018-10-04] MEDS ORDERED: BENADRYL PO ONE (09:30)
[2018-10-04] MEDS ORDERED: ZOFRAN ONE (09:56)
[2018-10-04] MEDS ORDERED: XYLOCAINE MPF 2% ONE (09:56)
[2018-10-04] MEDS ORDERED: NEO SYNEPHRINE/NS Syringe(OR USE) IV ONE ×2 (09:56→11:19)
[2018-10-04] MEDS ORDERED: NEO SYNEPHRINE ONE ×2 (09:56→11:19)
[2018-10-04] MEDS ORDERED: SOLU-Medrol IV ONE (10:00)
[2018-10-04] MEDS ORDERED: HEPARIN 10,000 UNITS/10 ML IV ONE (10:40)
[2018-10-04] MEDS ORDERED: NACL 0.9% 500 ML IV ONE (10:40)
--- NOTE | 2018-10-04 12:35 | Operative Report ---
Operative Report Operative Report: Date of procedure: 10/04/2018 Pre-operative diagnosis: Thrombosed AV fistula left arm, end-stage renal disease, granulomatosis with polyarteritis Post-operative diagnosis: Same Procedure name(s): Creation of left forearm-radial artery to cephalic vein fistula Surgeon: Harsh Herrera MD Squad Sergeant: Emani Jacobo NP Anesthesia: Gen. EBL: Minimal Specimen(s): None Complications: None Findings: Upper arm basilic vein contiguous with transverse brachial and cephalic vein into the distal forearm. Throughout the length of the vein size was quite adequate. Good thrill and bruit in AV fistula post completion of anastomosis. Procedure: Patient in the supine position with the left arm extended the entire extremity is prepped and draped using standard sterile technique. Duplex probe was used to identify and confirm that the proximal arm basilic vein, antecubital vein, and the cephalic vein in the forearm was adequate for AV fistula creation. That vessel was marked. A longitudinal incision was then made over the cephalic vein in the mid forearm. I identified the cephalic vein and mobilized it proximally and distally. The incision was then deepened over the artery. That vessel was mobilized for several centimeters and encircled using vessel loops. It was of good quality. The vein was divided distally and was dilated more and marked for rotation. The artery was then occluded and a longitudinal arteriotomy was then made in the anterior surface of the vessel. The vein was swung over and spatulated and an end-to-side anastomosis was then created using 6-0 Prolene suture in running technique. Prior to completion of the suture line antegrade and retrograde flushing was performed. The suture line was then completed and flow was established into the fistula from the retrograde artery. Subsequently from the inflow side. Flow was ultimately released back to the hand. There was an immediate thrill and bruit in the fistula. The incision was hemostatic and thus was blocked using Marcaine 0.5% and then closed using 0 Vicryl subcutaneous for Monocryl subcuticular. Skin was sealed with Dermabond. Patient was then returned to the supine position extubated and returned to the recovery room in stable condition having tolerated the procedure well. Sponge and needle counts were correct.
--- NOTE | 2018-10-04 12:43 | Short Stay Summary ---
Short Stay Documentation Date of service: 10/04/18 Narrative H&P: Patient admitted to the operative suite for outpatient creation of a new hemodialysis access preferably AV fistula to be done in the left arm - History H&P: obtained from office - Allergies and Medications Current Medications: Allergies nut - unspecified Allergy (Severe, Verified 01/01/16 07:13) Anaphylaxis shellfish derived Allergy (Severe, Verified 01/01/16 07:13) Anaphylaxis latex Allergy (Mild, Verified 12/31/15 04:09) Itching BYRON Inhibitors Allergy (Verified 10/03/18 14:24) Angioedema acetaminophen [From Percocet] Allergy (Verified 10/03/18 14:26) Vomiting azithromycin [From Zithromax] Allergy (Verified 10/03/18 14:24) Anaphylaxis iodine Allergy (Verified 10/03/18 14:26) Rash ketamine Allergy (Verified 10/03/18 14:26) Hallucinations, fights oxycodone Allergy (Verified 10/03/18 14:26) Vomiting Beef Containing Products Adverse Reaction (Mild, Verified 10/03/18 14:24) Unknown UPSET STOMACH gluten Adverse Reaction (Mild, Verified 10/03/18 14:24) Unknown UPSET STOMACH lactose Adverse Reaction (Mild, Verified 10/03/18 14:24) Unknown UPSET STOOMACH orange juice Adverse Reaction (Mild, Verified 10/03/18 14:24) Unknown UPSET STOMACH Pork/Porcine Containing Products Adverse Reaction (Mild, Verified 10/03/18 14:24) Unknown UPSET STOMACH soy Adverse Reaction (Mild, Verified 10/03/18 14:24) Unknown UPSET STOMACH Calcium Channel Blocking Agent Dilt Adverse Reaction (Verified 10/03/18 14:24) Headache hydralazine HCl [From Apresoline] Adverse Reaction (Verified 10/03/18 14:24) Unknown iv dye Allergy (Uncoded 10/03/18 14:24) Swelling ADHESIVES Adverse Reaction (Uncoded 10/03/18 14:24) Rash GLUE Adverse Reaction (Uncoded 10/03/18 14:24) Rash Home Medications Medication Instructions Recorded Confirmed Last Taken Type ALPRAZolam [Xanax TAB] 0.5 mg PO TID PRN 11/14/16 10/03/18 08/29/18 History 0.5mg B Complex 11/Folic/C/Biot/Zinc 1 each PO QDAY 11/15/16 10/03/18 08/29/18 History [Dialyvite with Zinc Tablet] 1 tab Cholecalciferol Vit D3 [Vitamin D3 50,000 units PO QWEEK 08/30/18 10/03/18 08/26/18 History 1,000 UNIT TAB] 42360 units Cinacalcet [Sensipar] 30 mg PO 4XW 08/30/18 10/03/18 08/28/18 History 30mg Ranitidine HCl [Zantac] 300 mg PO DAILY PRN 08/30/18 10/03/18 08/29/18 History 300mg Sucroferric Oxyhydroxide(Nf) 500 mg PO AC 08/30/18 10/03/18 08/29/18 History [Velphoro] traMADol [Ultram 50 MG tab] 50 mg PO TID PRN #25 tablet 08/30/18 10/03/18 Unknown Rx Apixaban [Eliquis] 5 mg PO DAILY 10/03/18 10/03/18 09/30/18 History Active Medications Fentanyl (Sublimaze) 50 mcg IV Q5MIN PRN PRN Reason: Pain , Severe (7-10) Stop: 10/04/18 15:00 Sodium Chloride (Nacl 0.9% 1000 Ml) 1,000 mls @ 42 mls/hr IV DIRECT SHAWN Last Admin: 10/04/18 09:00 Dose: 42 mls/hr Documented by: Cefazolin Sodium (Ancef/Sterile Water 2 Gm/20 Ml) 2 gm in 20 mls @ 80 mls/hr IV PREOP NR; Protocol Stop: 10/04/18 23:59 Midazolam HCl (Versed) 2 mg IV PREOP NR Stop: 10/04/18 23:59 Last Admin: 10/04/18 09:25 Dose: 2 mg Documented by: - Brief post op/procedure progress note Date of procedure: 10/04/18 Procedure: Date of procedure: 10/04/2018 Pre-operative diagnosis: Thrombosed AV fistula left arm, end-stage renal disease, granulomatosis with polyarteritis Post-operative diagnosis: Same Procedure name(s): Creation of left forearm-radial artery to cephalic vein fistula Surgeon: Harsh Herrera MD Access Nurse: Emani Jacobo NP Anesthesia: Gen. EBL: Minimal Specimen(s): None Complications: None Findings: Upper arm basilic vein contiguous with transverse brachial and cephalic vein into the distal forearm. Throughout the length of the vein size was quite adequate. Good thrill and bruit in AV fistula post completion of anastomosis. Procedure: Patient in the supine position with the left arm extended the entire extremity is prepped and draped using standard sterile technique. Duplex probe was used to identify and confirm that the proximal arm basilic vein, antecubital vein, and the cephalic vein in the forearm was adequate for AV fistula creation. That vessel was marked. A longitudinal incision was then made over the cephalic vein in the mid forearm. I identified the cephalic vein and mobilized it proximally and distally. The incision was then deepened over the artery. That vessel was mobilized for several centimeters and encircled using vessel loops. It was of good quality. The vein was divided distally and was dilated more and marked for rotation. The artery was then occluded and a longitudinal arteriotomy was then made in the anterior surface of the vessel. The vein was swung over and spatulated and an end-to-side anastomosis was then created using 6-0 Prolene suture in running technique. Prior to completion of the suture line antegrade and retrograde flushing was performed. The suture line was then completed and flow was established into the fistula from the retrograde artery. Subsequently from the inflow side. Flow was ultimately released back to the hand. There was an immediate thrill and bruit in the fistula. The incision was hemostatic and thus was blocked using Marcaine 0.5% and then closed using 0 Vicryl subcutaneous for Monocryl subcuticular. Skin was sealed with Dermabond. Patient was then returned to the supine position extubated and returned to the recovery room in stable condition having tolerated the procedure well. Sponge and needle counts were correct. - Hospital course Hospital course: Unremarkable - Disposition Condition at discharge: Stable Disposition: [id number] TO HOME OR SELFCARE - Discharge Diagnoses (1) Estefany's granulomatosis with vasculitis Status: Chronic Comment: Treated intraoperatively with Solu-Medrol (2) Complication of dialysis access insertion Status: Chronic Qualifiers: Encounter type: subsequent encounter Qualified Code(s): T82.9XXD - Unspecified complication of cardiac and vascular prosthetic device, implant and graft, subsequent encounter Comment: New access created in the left arm (3) ESRD (end stage renal disease) on dialysis Status: Chronic Short Stay Discharge Plan Activity: advance as tolerated Weight Bearing Status: Full Weight Bearing Diet: renal Wound: keep clean and dry Special Instructions: no heavy lifting Follow up with: ENEIDA PARSONS MD [Primary Care Provider] - 7 Days HARSH HERRERA MD [Staff Physician] - 14 Days
[2018-10-04] MEDS ORDERED: NORCO 5/325 PO PRN (13:11)
[2018-10-04 17:17] VITALS: BP 104/52
== END 2018-10-04 07:09 | disposition home or self-care (01) ==
LOC: OR 07:08
PROVIDERS: ATTEND Surgery Vascular Surgery
DX: T82.868A Thrombosis due to vascular prosthetic devices, implants and grafts, initial encounter (principal); I13.2 Hypertensive heart and chronic kidney disease with heart failure and with stage 5 chronic kidney disease, or end stage renal disease; N18.6 End stage renal disease; I50.9 Heart failure, unspecified; D64.9 Anemia, unspecified; I73.9 Peripheral vascular disease, unspecified; J45.909 Unspecified asthma, uncomplicated; K21.9 Gastro-esophageal reflux disease without esophagitis; E66.9 Obesity, unspecified; F41.9 Anxiety disorder, unspecified; G43.909 Migraine, unspecified, not intractable, without status migrainosus; M79.7 Fibromyalgia; Z91.040 Latex allergy status; Z91.018 Allergy to other foods; Z91.013 Allergy to seafood; Z91.041 Radiographic dye allergy status; Z98.890 Other specified postprocedural states; Z79.899 Other long term (current) drug therapy; Z87.891 Personal history of nicotine dependence; Z68.35 Body mass index [BMI] 35.0-35.9, adult; Z85.89 Personal history of malignant neoplasm of other organs and systems; Z85.3 Personal history of malignant neoplasm of breast; Z98.51 Tubal ligation status; Z98.891 History of uterine scar from previous surgery; Z99.2 Dependence on renal dialysis; Z83.3 Family history of diabetes mellitus; Z82.49 Family history of ischemic heart disease and other diseases of the circulatory system; Z88.8 Allergy status to other drugs, medicaments and biological substances; Y83.8 Other surgical procedures as the cause of abnormal reaction of the patient, or of later complication, without mention of misadventure at the time of the procedure; Y92.89 Other specified places as the place of occurrence of the external cause
CPT/HCPCS: 36821; 82803; 87075; 87116; J0690; J1644; J2250; J2370; J2405; J2704; J2930; J3010; J7030; J7040